=== PATIENT | female | born 1950 | race Caucasian/White ===

== ENCOUNTER → 2018-04-17 16:57 | Outpatient (CLI) | payer MEDICARE, SELFPAY ==
[2018-04-17 18:13] LABS: Pathologist Comment May follow
[2018-04-17 19:16] LABS: RBC /Synovial Fluid 0.002 10^6/uL (0); Synovial Fld Polynuclear WBC # 0.248 10^3/ul
[2018-04-17 20:48] LABS: AUTO B FLUID DILUENT BKGD CT WBC <0.1 RBC <0.01 (W<.1,R<.01); Appearance /Synovial Fluid Sl hazy (CLEAR); Color / Synovial Fluid Yellow (Pale Yellow); Source / Synovial Fluid RT KNEE
[2018-04-17 20:49] LABS: Lymph 16 %; Monocyte /Synovial Fluid 78 %; Neutrophil 2 % (0-25)
[2018-04-17 20:51] LABS: Body Fluid QC Type(s) BF1Q,BF2Q; Other Cell /Synovial Fluid 4 %
[2018-04-17 20:58] LABS: Source- Body Fluid SYNOVIAL
[2018-04-18 16:08] LABS: Pathologist Review Reviewed
== END ==
PROVIDERS: Family Provider Internal Medicine; PCP Internal Medicine; Visit Provider Specialist
DX: Z96.651 Presence of right artificial knee joint (principal)
CPT/HCPCS: 87015; 87070; 87075; 87101; 87116; 87205; 87206; 89050; 89051; 89060

== ENCOUNTER 2018-08-11 09:30 | Outpatient (RCR) | payer MEDICARE, SELFPAY ==
--- NOTE | 2018-07-03 10:00 | HP.PTEVAL_ITS ---
Patient's Visit Information CONCEPCION ABAD is a 68 year old F referred to Physical Therapy by LUIS SANDS with a diagnosis of Revision of TKR. Date of Evaluation: 07/03/18 Physical Therapist: Ekaterina Suarez - Visit Plan Frequency: 3x /Week Duration: 3 Weeks Plan: TKR Revision 06/08- Focus on functional mobility - Subjective Subjective: Both knees TKR partials about 14 years ago- and then had a revision on the right. Last year at the end of April she fell and she got a staff infection- had to open it up and had to replace it but they wouldn't do anything until the infection was gone. Finally TKR Jun [address] Sands in [place]. Went home after 2 days- and had home health therapy and was dismissed on Tuesday. Single story home- with one stair to get in- No problems getting in/out with near. Is not driving yet- Fully functional before surgery. Pain in the knee is not so good- she had 2 oxy's every 4 hours and then the last prescription she is on 3 for the whole day. So she is adjusting and doing okay. She has been taking arthritis tylenol between. Sleep: mildly disturbed. She is using the walker and night and the cane during the day. Worst: 10/10 Agg: walking, sitting to long. Best: 0/10 Eases: pain medication, rubbing it, massage. Pain is located in the knee and up into the quad. No radiating pain. Achy pains in the knee. N/T in the anterior knee and superior patella. She feels that ants running up and down the leg and feels its nerve moving. Goals: be able to walk and be in less pain- fully functional- cook helper dessert- increase endurance. PMHx: thyroid, anxiety, restless leg Meds: synthroid, prampraxol, avastatin, others but doesn't remember the meds - Objective Posture: FH, RS, Increased kyphosis. Gait: antalgic- uses straight cane- decreased heel/toe pattern and does not reach full extn in stance phase. Stairs : asc/desc 8 stairs-ascend- non recip with 2 HR and UE assist. Descend- recip with decreased control 2 HR. HR/TR: able but decrease by 50% and reports discomfort. SLS: unable but can weight shift about 50% but reports discomfort and fear. Palpation: tender along medial joint line and quad. ROM: 15-100 degrees. Strength: Ankle: 5/5, Knee: 4-/5, Hip: 4/5 throughout Core: poor - Goals Goal 1:: Patient will be I with HEP and progression Goal Time Frame: 4-6 Weeks Goal 2:: Patient will asc/desc 8 stairs recip with 1 HR Goal Time Frame: 4-6 Weeks Goal 3:: Patient will ambulate with LRD and normal gait pattern Goal Time Frame: 4-6 Weeks Goal 4:: Patient will report 3/10 pain for 1 week Goal Time Frame: 4-6 Weeks - Rehabilitation Potential Physical Therapy Diagnosis: Patient presents s/p TKR on the right- she has decreased ROM, strength and endurance leading to abnormal gait and decreased ability to perform ADL's. Rehabilitation Potential: Fair - Anticipated Interventions Patient/Client Instruction: Educate patient on: Benefits of Fitness Program Therapeutic Exercise to Include: Strength training, Endurance training, Balance training, Coordination, Body mechanics, Postural training, Flexibilty training, Gait and locomotor training, Dynamic Lumbar Stabilization For the Purpose of:: To improve muscle performance and motor function Functional Training to Include: Gait training Manual Therapy Techniques to Include: Soft tissue mobilization TENS: Yes Cryotherapy (ice pack, ice massage): Yes Thermo therapy (hot pack): Yes Ultrasound (thermal/non thermal): No For the Purpose of:: To decrease pain Thank you for the opportunity to evaluate your patient. For Medicare and Medicare HMO plans, please review the plan of care and approve it. It will need to be FAXED BACK to us at [phone] for Medicare purposes. Please let me know if there are questions or concerns regarding this plan of care. Physician Signature: Date:
--- NOTE | 2018-07-24 07:20 | HP.PTREVAL_ITS ---
LUIS VALENZUELA, It has been my pleasure to treat CONCEPCION ABAD over the last 9 visits for Revision of TKR. Please see the progress note below for an update on the physical therapy plan of care! Subjective: Pt. feels good overall. Slept last night getting up only once for first time in a long time. Driving. Pt believes pain is now just muscular pain from increasing activity. Little tender along incision on R leg. Feel like going in the right direction. No pain currently, worst 8/10 muscular soreness causing pain. Walking is okay, does not like to stand still. Went to orientation for silver sneakers. Numb along lateral knee but always has been since surgery. Able to do stairs at home which are much steeper than at [facility] with 1 HR reciprocally or no HR step to pattern. Errands, dressing, cooking, showering all able without trouble. Still would like to be able to go up stairs at home with 1 HR because steeper. Would like to be able to transition from floor to stand using half kneel not tripod. Wants to gain strength in UE as well with silver sneakers. Objective/Function: Gait: WFL. No AD. Slight stiffness in walk when first rise from chair, but as get moving gait becomes more normal. Stairs: ascend/descend stairs reciprocally with 1 HR. Minor decrease in eccentric control just before initial contact of step when descending, but definite improvement. AROM: LE WFL, able to heel and toe raise without UE support. Strength: LE 5/5 bilat. with exception of R hip IR/ER 4+/5. Balance: SL on R 19 seconds L 10 seconds with minimal UE hand contact on table. Plan Plan: Cont. PT services 3x week for 3 more weeks. Focus on balance and cont. LE strength in order to negotiate steep stairs at home with 1 HR; work on strenght and transitioning from floor to stand half kneel. Goals Goal 1:: Patient will be I with HEP and progression Goal Time Frame: 4-6 Weeks Goal Progress: Progressing Goal 2:: Patient will asc/desc 8 stairs recip with 1 HR Goal Time Frame: 4-6 Weeks Goal Progress: Goal Met Goal 3:: Patient will ambulate with LRD and normal gait pattern Goal Time Frame: 4-6 Weeks Goal Progress: Goal Met Goal 4:: Patient will report 3/10 pain for 1 week Goal Time Frame: 4-6 Weeks Goal Progress: Progressing Anticipated Interventions Patient/Client Instruction: Educate patient on: Benefits of Fitness Program Therapeutic Exercise to Include: Strength training, Endurance training, Balance training, Coordination, Body mechanics, Postural training, Flexibilty training, Gait and locomotor training, Dynamic Lumbar Stabilization For the Purpose of:: To improve muscle performance and motor function Functional Training to Include: Gait training Manual Therapy Techniques to Include: Soft tissue mobilization TENS: Yes Cryotherapy (ice pack, ice massage): Yes Thermo therapy (hot pack): Yes Ultrasound (thermal/non thermal): No For the Purpose of:: To decrease pain Please do not hesitate to contact me at [phone] by phone or if you have questions or concerns regarding this new plan of care! Sincerely, Ekaterina Suarez
--- NOTE | 2018-08-11 09:52 | HP.PTDCSUM ---
HP - PT D/C Summary It has been my pleasure to treat CONCEPCION ABAD under orders from LUIS VALENZUELA, for the diagnosis of Revision of TKR for a total of 18 visit(s). Discharge Date: Please see the following information for a summary of their discharge status. - Subjective Subjective: Patient reports that the knee is way better since she started coming but she still has stabbing pains that comes and goes. Sleep: not related to the knee. No pain currently when sitting but when she stands and takes her first step it hurts then the pain eases and goes away. No concerns with home exercise program. - Pain anterior knee Pain Intensity (Out of 10): 3 - Overall Improvement % Improvement: 80 - Objective Objective/Function: Gait: decreased stance on the right LE- decreaed heel/toe pattern without verbal cueing- toes turned out- can correct with VC's- No AD. Slight stiffness in walk when first rise from chair, but as get moving gait becomes more normal. Stairs: ascend/descend stairs reciprocally with 1 HR. Minor decrease in eccentric control just before initial contact of step when descending, but definite improvement. AROM: LE WFL, able to heel and toe raise without UE support. Strength: LE 5/5 bilat. Balance: SLS 30 seconds with UE A light touch. ROM: 5-115 degrees - Goals Goal 1:: Patient will be I with [facility] and progression Goal Progress: Goal Met Goal 2:: Patient will asc/desc 8 stairs recip with 1 HR Goal Progress: Goal Met Goal 3:: Patient will ambulate with LRD and normal gait pattern Goal Progress: Goal Met Goal 4:: Patient will report 3/10 pain for 1 week Goal Progress: Goal Met - Plan Plan: Discharge to [facility] - D/C Information If there are questions or concerns regarding this patient's physical therapy, please feel free to call me at [phone]. Thank you for the referral of this patient. Sincerely, Ekaterina Suarez
== END 2018-08-11 19:00 | disposition home or self-care (01) ==
LOC: PT 09:30
DX: Z96.651 Presence of right artificial knee joint (principal)
CPT/HCPCS: 97014; 97110; 97161; 97164; G0283